=== PATIENT | female | born 1990 | race Caucasian/White ===

== ENCOUNTER → 2021-07-17 | Outpatient (CLI) | payer OTHER ==
[~2021-07-17] MED LIST: PNV1TABL17 PO
== END | disposition home or self-care (01) ==
LOC: DTH 12:16
PROVIDERS: ATTEND Surgery
DX: E66.01 Morbid (severe) obesity due to excess calories (principal); E78.00 Pure hypercholesterolemia, unspecified; E66.3 Overweight
CPT/HCPCS: 97802

== ENCOUNTER 2021-10-11 15:00 | Inpatient (IN) | payer BC, SELFPAY ==
[~2021-10-11] VITALS: Ht 167.6 cm; Wt 112.5 kg
[2021-10-23 10:20] VITALS: BP 137/85
[2021-10-23 10:31] LABS: BASOPHILS % (AUTO) 0.7 % (0.0-5.0); EOSINOPHILS % (AUTO) 1.2 % (0.0-8.0); HEMATOCRIT 43.3 % (36-48); MEAN CORPUSCULAR HEMOGLOBIN 27.6 pg (27.0-33.0); MEAN CORPUSCULAR HGB CONC 32.6 g/dL (32.0-36.0); MEAN CORPUSCULAR VOLUME 84.7 fL (79-99); MONOCYTES % (AUTO) 5.2 % (3.0-13.0); NEUTROPHILS % (AUTO) 47.7 % (40.0-77.0); PLATELET COUNT (AUTO) 343 K/uL (130-400); RED BLOOD CELL COUNT(AUTO) 5.11 MIL/uL (4.00-5.50); RED CELL DISTRIBUTION WIDTH 12.6 % (11.0-15.5); WHITE BLOOD COUNT (AUTO) 9.4 K/uL (4.8-10.8)
[2021-10-23 10:50] LABS: CREATININE 0.6 mg/dL (0.5-1.5); POTASSIUM 4.1 mmol/L (3.5-5.1)
[2021-10-25] MEDS ORDERED: ESCI10TA PO (08:56)
[2021-10-26] VITALS (24 sets, daily range): BP systolic 106–144; BP diastolic 56–83
[2021-10-26] MEDS ORDERED: HEPARIN 5,000 UNIT VIAL SQ SCH ×2 (06:00→11:00)
[2021-10-26] MEDS ORDERED: CEFAZOLIN SODIUM 1 GM VIAL IVP SCH (06:00)
[2021-10-26] MEDS ORDERED: BUPIVACAINE/EPI/PF 0.5% 30ML VIAL IJ ONE (06:33)
[2021-10-26] MEDS ORDERED: METHYLENE BLUE 5 MG/ML AMP ONE (06:33)
[2021-10-26] MEDS ORDERED: PROPOFOL 10 MG/ML 20ML VIAL IV ONE (06:42)
[2021-10-26] MEDS ORDERED: MIDAZOLAM HCL 1 MG/ML 2ML VIAL ONE (06:42)
[2021-10-26] MEDS ORDERED: LIDOCAINE PF 100MG/5ML (2%) SYRINGE 5ML ONE (06:42)
[2021-10-26] MEDS ORDERED: FENTANYL CITRATE PF 50 MCG/1 ML 2ML VIAL ONE (06:43)
[2021-10-26] MEDS ORDERED: ROCURONIUM 10MG/1ML SYR 10 MG/ML ML ONE (06:43)
[2021-10-26] MEDS ORDERED: MORPHINE PF 100MG/10ML AMP IV ONE (06:52)
[2021-10-26] MEDS: LACTATED RINGERS 1000ML 1,000 ML IV SCH ×2 (06:52→20:37)
[2021-10-26] MEDS ORDERED: MAGNESIUM SULFATE 1 GM/2 ML VIAL ONE (06:59)
[2021-10-26] MEDS ORDERED: DEXMEDETOMIDINE HCL 200 MCG/2 ML VIAL IV ONE (06:59)
[2021-10-26] MEDS ORDERED: KETAMINE HCL 100 MG/ML 5ML VIAL IJ ONE (06:59)
[2021-10-26] MEDS ORDERED: ONDANSETRON 4MG INJ ONE ×2 (07:01→09:23)
[2021-10-26] MEDS: CEFOXITIN SODIUM 2 GM VIAL ONE ×2 (07:05→07:39)
[2021-10-26] MEDS ORDERED: SCOPOLAMINE HYDROBROMIDE 1 EACH ADH..PATCH TD ONE (07:12)
[2021-10-26] MEDS: D5LR-20 MEQ KCL 1000 ML 1,000 ML IV SCH ×3 (09:00→22:20)
[2021-10-26] MEDS ORDERED: HYDROMORPHONE PCA 10 MG/50 ML 50 ML IV PRN (09:00)
[2021-10-26] MEDS ORDERED: KETOROLAC 30MG VIAL (30MG/ML) IV PRN (09:00)
[2021-10-26] MEDS ORDERED: PROCHLORPERAZINE 10MG/2ML INJ IV PRN (09:00)
[2021-10-26] MEDS ORDERED: MORPHINE 4 MG SYG IVP PRN (09:00)
[2021-10-26] MEDS ORDERED: MEPERIDINE-PF 25 MG/ML SYG ONE ×2 (09:14→09:23)
[2021-10-26] MEDS ORDERED: PROMETHAZINE HCL 25 MG/ML 1ML AMPULE IM PRN ×4 (11:00)
[2021-10-26] MEDS ORDERED: MORPHINE 2 MG SYG IM PRN ×2 (11:00)
[2021-10-26] MEDS ORDERED: LACTATED RINGERS 1000ML 1,000 ML IV SCH (11:00)
[2021-10-26] MEDS ORDERED: MORPHINE 4 MG SYG IM PRN (11:00)
[2021-10-26] MEDS ORDERED: MEPERIDINE-PF 25 MG/ML SYG IV PRN (11:00)
[2021-10-26] MEDS: FAMOTIDINE 20MG VIAL IV SCH ×2 (11:46→20:37)
[2021-10-26] MEDS: HEPARIN 5,000 UNIT VIAL SQ SCH (20:48)
[2021-10-26] MEDS ORDERED: FAMOTIDINE 20MG VIAL IV SCH (21:00)
[2021-10-27] MEDS: LACTATED RINGERS 1000ML 1,000 ML IV SCH (02:44)
[2021-10-27 03:50] VITALS: BP 131/75
[2021-10-27] MEDS: D5LR-20 MEQ KCL 1000 ML 1,000 ML IV SCH ×2 (04:09→11:40)
[2021-10-27 08:00] VITALS: BP 130/72
[2021-10-27] MEDS: FAMOTIDINE 20MG VIAL IV SCH (08:23)
[2021-10-27] MEDS: HEPARIN 5,000 UNIT VIAL SQ SCH (08:26)
[2021-10-27] MEDS ORDERED: CITALOPRAM 20 MG TABLET PO SCH (09:00)
[2021-10-27 12:00] VITALS: BP 120/73
== END 2021-10-27 15:00 | disposition home or self-care (01) | DRG 621 ==
LOC: EDSTATUS 10-23 08:00 → DAHIP 10-26 05:55 → 4BH 10-26 09:25
PROVIDERS: ADMIT Surgery; ATTEND Surgery
PROC: 3E0T3BZ Introduction of Anesthetic Agent into Peripheral Nerves and Plexi, Percutaneous Approach (ICD-10-PCS; 2021-10-26)
PROC: 0DB64Z3 Excision of Stomach, Percutaneous Endoscopic Approach, Vertical (ICD-10-PCS; principal; 2021-10-26 07:43)
DX: E66.01 Morbid (severe) obesity due to excess calories (principal); Z20.822 Contact with and (suspected) exposure to COVID-19; Z68.41 Body mass index [BMI] 40.0-44.9, adult
CPT/HCPCS: 36415; 80048; 82948; 84703; 85025; 87635; 93005; 94760; G0378; J0690; J0694; J1170; J1644; J1885; J2001; J2175; J2250; J2270; J2274; J2405; J2550; J2704; J3010; J3475; J3480; J3490; J7120; Q9968